=== PATIENT | male | born 1975 | race Caucasian/White ===

== ENCOUNTER 2017-07-30 12:48 | Emergency (ER) | payer OTHER ==
[2017-07-30 13:26] VITALS: BP 121/88; PULSE 91; RESP 18; TEMP 98.5
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
--- NOTE | 2017-07-30 13:52 | XR ---
EXAMINATION TYPE: XR hand complete RT , 3 VIEWS DATE OF EXAM ORDERED: 07/30/2017 HISTORY: Pain. COMPARISON: None. FINDINGS: There is a fracture of the tuft of the ring finger with associated soft tissue swelling. T his is minimally displaced. No additional fracture is seen. IMPRESSION: MINIMALLY DISPLACED FRACTURE OF THE ULNAR ASPECT OF THE TUFT OF THE RING FINGER. CODE B: INITIAL ENCOUNTER FOR OPEN FRACTURE TYPE I OR II.
--- NOTE | 2017-07-30 13:53 | XR ---
EXAMINATION TYPE: XR wrist complete RT , 4 VIEWS DATE OF EXAM ORDERED: 07/30/2017 HISTORY: Pain. COMPARISON: None. FINDINGS: No fracture, dislocation or other acute osseous lesion is seen. IMPRESSION: NO ACUTE OSSEOUS LESION.
== END 2017-07-30 14:29 | disposition home or self-care (01) ==
LOC: EC 12:48
DX: S62.634A Displaced fracture of distal phalanx of right ring finger, initial encounter for closed fracture (principal); S60.221A Contusion of right hand, initial encounter; F17.200 Nicotine dependence, unspecified, uncomplicated; Z88.5 Allergy status to narcotic agent; W51.XXXA Accidental striking against or bumped into by another person, initial encounter
CPT/HCPCS: 99283

== ENCOUNTER 2018-02-06 13:07 | Emergency (ER) | payer OTHER ==
[2018-02-06 13:27] VITALS: BP 120/82; PULSE 84; RESP 18; TEMP 98.5
[2018-02-06] MEDS ORDERED: HYDROcodone/APAP 5-325MG 1 EACH TAB PO STA (13:46)
--- NOTE | 2018-02-06 13:50 | ED ---
General Adult HPI - General Chief complaint: Dental/Oral Stated complaint: dental pain Time Seen by Provider: 02/06/18 13:31 Source: patient, RN notes reviewed Mode of arrival: ambulatory Limitations: no limitations - History of Present Illness Initial comments: Patient is a 42-year-old male presented to the emergency room today with a chief complaint of increased dental pain. He does admit that he was eating breakfast this morning and he believes part of a filling broke. Patient does admit to some pain in the gumline in this area. Patient states that he called his dentist but was unable to the appointment will be able to see them until Tuesday. States that he was advised coming here in the emergency room. Patient denies any other symptoms. Patient denies any recent fever, chills, shortness of breath, chest pain, back pain, abdominal pain, nausea or vomiting, numbness or tingling, headaches or visual changes, or any other complaints. - Related Data Home Medications Medication Instructions Recorded Confirmed Loratadine [Claritin] 10 mg PO DAILY 02/06/18 02/06/18 Methocarbamol [Robaxin-750] 750 mg PO Q4H PRN 02/06/18 02/06/18 Previous Rx's Medication Instructions Recorded Penicillin V Potassium [Pen Vee K] 500 mg PO QID #40 tablet 02/06/18 Allergies Allergy/AdvReac Type Severity Reaction Status Date / Time codeine Allergy Unknown Verified 02/06/18 13:37 Review of Systems ROS Statement: Those systems with pertinent positive or pertinent negative responses have been documented in the HPI. ROS Other: All systems not noted in ROS Statement are negative. Past Medical History Past Medical History: No Reported History History of Any Multi-Drug Resistant Organisms: None Reported Past Surgical History: Orthopedic Surgery Additional Past Surgical History / Comment(s): RIGHT ELBOW SURGERY Past Psychological History: Depression Smoking Status: Current every day smoker Past Alcohol Use History: None Reported Past Drug Use History: None Reported General Exam - General Exam Comments Initial Comments: General: The patient is awake and alert, in no distress, and does not appear acutely ill. Eye: Pupils are equal, round and reactive to light. Extra-ocular movements are intact. No nystagmus. There is normal conjunctiva bilaterally. No signs of icterus. Ears, nose, mouth and throat: There are moist mucous membranes and no oral lesions. Patient does have to dental crown that have broken over tooth #30 and 31. Neck: The neck is supple, there is no tenderness or JVD. Musculoskeletal: Normal ROM, no tenderness. Sensation intact. Strength 5/5. Pulses equal bilaterally 2+. Neurological: A&O x 3. CN II-XII intact, There are no obvious motor or sensory deficits. Coordination appears grossly intact. Speech is normal. Skin: Skin is warm and dry and no rashes or lesions are noted. Psychiatric: Cooperative, appropriate mood & affect, normal judgment. Limitations: no limitations Course Vital Signs 02/06/18 13:26 Temperature 98.5 F Pulse Rate 84 Respiratory 18 Rate Blood Pressure 120/82 O2 Sat by Pulse 99 Oximetry Medical Decision Making - Medical Decision Making Patient will be given dose pain medication here in the emergency room and discharged home on antibiotics to cover for infection is advised follow-up dentist over the next 2 days returning if symptoms increase or worsen. Disposition Clinical Impression: Pain, dental Disposition: HOME SELF-CARE Condition: Good Instructions: Toothache (ED) Additional Instructions: Please use medication as discussed. Please follow-up with dentist/family doctor in the next 2 days of symptoms have not improved. Please return to emergency room if the symptoms increase or worsen or for any other concerns. Prescriptions: Penicillin V Potassium [Pen Vee K] 500 mg PO QID #40 tablet Is patient prescribed a controlled substance at d/c from ED?: No Referrals: Arleth Contreras MD [Primary Care Provider] - 1-2 days Time of Disposition: 13:49
== END 2018-02-06 14:11 | disposition home or self-care (01) ==
LOC: EC 13:07
DX: K08.89 Other specified disorders of teeth and supporting structures (principal); F17.200 Nicotine dependence, unspecified, uncomplicated; Z88.5 Allergy status to narcotic agent; Z79.899 Other long term (current) drug therapy; Z98.811 Dental restoration status
CPT/HCPCS: 99282

== ENCOUNTER 2018-07-15 16:22 | Emergency (ER) | payer OTHER ==
[2018-07-15 16:27] VITALS: BP 150/93; PULSE 95; RESP 16; TEMP 98.5
[2018-07-15] MEDS ORDERED: IBUPROFEN 600 MG STARTER PACK 4 TAB BTL PO STA (16:39)
[2018-07-15] MEDS ORDERED: LIDOCAINE 1% INJ 10MG/ML (20 ML MDV) SQ ONE (16:39)
[2018-07-15] MEDS ORDERED: traMADol 50 MG STARTER PACK 3 TAB BTL PO STA (16:39)
[2018-07-15] MEDS ORDERED: PENICILLIN VK 500MG STARTER 4 TAB BTL PO STA (16:41)
--- NOTE | 2018-07-15 16:43 | ED ---
ENT HPI - General Chief complaint: Dental/Oral Stated complaint: Dental issues Time Seen by Provider: 07/15/18 16:26 Source: patient, RN notes reviewed, old records reviewed Mode of arrival: ambulatory Limitations: no limitations - History of Present Illness Initial comments: 43-year-old male presents emergency department today with complaints of dental pain. Patient relates is eating and broke his teeth today. Patient proceeded remain appointment see dentist on Tuesday. Patient states that he has had history of dental issues. Patient reports that has had no chest features for nausea or vomiting, denies any fevers or chills. - Related Data Home Medications Medication Instructions Recorded Confirmed Loratadine [Claritin] 10 mg PO DAILY 02/06/18 02/06/18 Methocarbamol [Robaxin-750] 750 mg PO Q4H PRN 02/06/18 02/06/18 Previous Rx's Medication Instructions Recorded Penicillin V Potassium [Pen Vee K] 500 mg PO QID #40 tablet 02/06/18 Penicillin V Potassium [Pen Vee K] 500 mg PO QID #40 tablet 07/15/18 Allergies Allergy/AdvReac Type Severity Reaction Status Date / Time codeine Allergy Unknown Verified 07/15/18 16:27 Review of Systems ROS Statement: Those systems with pertinent positive or pertinent negative responses have been documented in the HPI. ROS Other: All systems not noted in ROS Statement are negative. Past Medical History Past Medical History: No Reported History History of Any Multi-Drug Resistant Organisms: None Reported Past Surgical History: Orthopedic Surgery Additional Past Surgical History / Comment(s): RIGHT ELBOW SURGERY Past Psychological History: Depression Smoking Status: Current every day smoker Past Alcohol Use History: None Reported Past Drug Use History: None Reported General Exam - General Exam Comments Initial Comments: 43-year-old male. Alert and oriented. No distress. Limitations: no limitations General appearance: alert, in no apparent distress Head exam: Present: atraumatic, normocephalic, normal inspection Eye exam: Present: normal appearance, PERRL, EOMI. Absent: scleral icterus, conjunctival injection, periorbital swelling ENT exam: Present: normal exam, mucous membranes moist, other (Patient is a broken tooth #30 and #5. Evidence of dental caries and cavities are filled with metal fillings.) Neck exam: Present: normal inspection. Absent: tenderness, meningismus, lymphadenopathy Respiratory exam: Present: normal lung sounds bilaterally. Absent: respiratory distress, wheezes, rales, rhonchi, stridor Cardiovascular Exam: Present: regular rate, normal rhythm, normal heart sounds. Absent: systolic murmur, diastolic murmur, rubs, gallop, clicks GI/Abdominal exam: Present: soft, normal bowel sounds. Absent: distended, tenderness, guarding, rebound, rigid Extremities exam: Present: normal inspection, full ROM, normal capillary refill. Absent: tenderness, pedal edema, joint swelling, calf tenderness Back exam: Present: normal inspection Neurological exam: Present: alert, oriented X3, CN II-XII intact Psychiatric exam: Present: normal affect, normal mood Course Vital Signs 07/15/18 16:23 Temperature 98.5 F Pulse Rate 95 Respiratory 16 Rate Blood Pressure 150/93 O2 Sat by Pulse 96 Oximetry Procedures - Nerve Block Local Anesthetic Used: Lidocaine 1% Amount of anesthesia used: 5 Side: right Intraoral Nerve Block: inferior alveolar Procedure Successful: Yes Complications: none Patient Tolerated Procedure: well, no complications Medical Decision Making - Medical Decision Making 47-year-old male presents today with complaints of dental pain. Patient reports he broke his tooth #30 and #4. Patient was given an inferior alveolar block wi th success. Discussed discharge the Patient with a prescription for antibiotics. He'll see a dentist on Tuesday. All questions Tonny return parameters were discussed. Disposition Clinical Impression: Pain, dental, Broken tooth injury Disposition: HOME SELF-CARE Condition: Good Instructions (If sedation given, give patient instructions): Toothache (ED) Additional Instructions: [facility] [address] [id number] [place] [address] [phone] (existing clients only) For new clients: [phone] 1st consult: $50 (includes Xrays) Usually 30% less then private dentist for visits after. [employer] Have to pay $50 for Xrays anmd rest is covered. [phone] Prescriptions: Penicillin V Potassium [Pen Vee K] 500 mg PO QID #40 tablet Is patient prescribed a controlled substance at d/c from ED?: No Referrals: Arleth Contreras MD [Primary Care Provider] - 1-2 days Time of Disposition: 16:43
== END 2018-07-15 17:00 | disposition home or self-care (01) ==
LOC: EC 16:22
DX: S02.5XXA Fracture of tooth (traumatic), initial encounter for closed fracture (principal); F17.200 Nicotine dependence, unspecified, uncomplicated; Z79.899 Other long term (current) drug therapy; Z88.5 Allergy status to narcotic agent; X58.XXXA Exposure to other specified factors, initial encounter
CPT/HCPCS: 99283; 64400; J2001

== ENCOUNTER 2018-07-26 16:49 | Emergency (ER) | payer OTHER ==
[2018-07-26 16:54] LABS: Glucose,Whole Blood 81 mg/dL (75-99)
[2018-07-26] MEDS ORDERED: SODIUM CHLORIDE 0.9% 1,000 ML IV STA (16:55)
[2018-07-26 16:56] VITALS: RESP 18
[2018-07-26 17:02] LABS: Basophils % (A) 0 %; Eosinophils # (A) 0.1 k/uL (0-0.7); Eosinophils % (A) 1 %; HCT 42.9 % (39.0-53.0); HGB 13.8 gm/dL (13.0-17.5); Lymphocytes # (A) 1.9 k/uL (1.0-4.8); Lymphocytes % (A) 21 %; MCH 26.1 pg (25.0-35.0); MCHC 32.2 g/dL (31.0-37.0); MCV 81.3 fL (80.0-100.0); Mean Platelet Volume 7.7; Monocytes # (A) 0.5 k/uL (0-1.0); Monocytes % (A) 6 %; Neutrophils # (A) 6.5 k/uL (1.3-7.7); Neutrophils % (A) 71 %; Platelet Count 227 k/uL (150-450); RBC 5.28 m/uL (4.30-5.90); RDW 14.2 % (11.5-15.5); WBC 9.2 k/uL (3.8-10.6)
--- NOTE | 2018-07-26 17:02 | ED ---
General Adult HPI - General Chief complaint: Neuro Symptoms/Deficit Stated complaint: Poss CVA Time Seen by Provider: 07/26/18 16:50 Source: patient, EMS, RN notes reviewed Mode of arrival: EMS Limitations: no limitations - History of Present Illness Initial comments: Patient is a pleasant 43-year-old male presenting to the emergency department with concern for stroke. Patient was at work around a half an hour ago was onset of symptoms. Patient did feel like his vision was getting blurry and he may pass out. Patient does have a right-sided headache. Patient does have a history of previous headaches worse than this one. Patient states his vision is near normal at this point. EMS arrived and had question regarding some weakness on the patient's left side. They feel this has somewhat progressed since first evaluating patient. They state there was originally no facial droop however there seems to be at this point. Patient denies history of any similar symptoms previously except for headache. Patient does not feel confused. Patient denies any speech problems. - Related Data Home Medications Medication Instructions Recorded Confirmed Loratadine [Claritin] 10 mg PO DAILY 02/06/18 07/26/18 Ergocalciferol (Vitamin D2) 50,000 unit PO TU 07/26/18 07/26/18 [Vitamin D2] HYDROcodone/APAP 10-325MG [[place] 1 tab PO BID PRN 07/26/18 07/26/18 10-325] Naproxen 500 mg PO BID PRN 07/26/18 07/26/18 Allergies Allergy/AdvReac Type Severity Reaction Status Date / Time codeine Allergy Unknown Verified 07/26/18 16:56 Review of Systems ROS Statement: Those systems with pertinent positive or pertinent negative responses have been documented in the HPI. ROS Other: All systems not noted in ROS Statement are negative. Constitutional: Denies: fever Eyes: Reports: as per HPI. Denies: eye pain ENT: Denies: ear pain Respiratory: Denies: dyspnea Cardiovascular: Denies: chest pain Endocrine: Denies: fatigue Gastrointestinal: Denies: abdominal pain Genitourinary: Denies: dysuria Musculoskeletal: Denies: back pain Skin: Denies: rash Neurological: Reports: as per HPI, headache, weakness. Denies: confusion Past Medical History Past Medical History: No Reported History History of Any Multi-Drug Resistant Organisms: None Reported Past Surgical History: Orthopedic Surgery Additional Past Surgical History / Comment(s): RIGHT ELBOW SURGERY Past Psychological History: Depression Smoking Status: Current every day smoker Past Alcohol Use History: None Reported Past Drug Use History: None Reported General Exam Limitations: no limitations General appearance: alert, in no apparent distress Head exam: Present: atraumatic Eye exam: Present: normal appearance, PERRL, EOMI, nystagmus ENT exam: Present: normal oropharynx Neck exam: Present: normal inspection Respiratory exam: Present: normal lung sounds bilaterally Cardiovascular Exam: Present: regular rate, normal rhythm GI/Abdominal exam: Present: soft. Absent: tenderness Extremities exam: Present: normal inspection Neurological exam: Present: alert, oriented X3, CN II-XII intact (Except for left-sided facial droop) Expanded Neurological exam: Present: protecting the airway, other (Left facial droop. Minimal drift left arm and left leg. Patient does have nystagmus present horizontally.) Patient oriented to: Present: person, place, time Speech: Present: fluid speech Cranial nerves: EOM's Intact: Normal, Facial Sensation: Normal Sensory exam: Upper Extremity Light Touch: Normal, Lower Extremity Light Touch: Normal Motor strength exam: RUE: 5, LUE: 4, RLE: 5, LLE: 4 Eye Response: (4) open spontaneously Motor Response: (6) obeys commands Verbal Response: (5) oriented Psychiatric exam: Present: normal affect, normal mood Skin exam: Present: normal color Course Vital Signs 07/26/18 07/26/18 07/26/18 16:52 17:05 17:20 Temperature 98.3 F Pulse Rate 82 80 84 Respiratory 18 18 18 Rate Blood Pressure 120/85 115/65 114/64 O2 Sat by Pulse 100 98 98 Oximetry - Reevaluation(s) Reevaluation #1: 07/26/18 17:00 Code stroke has been called 07/26/18 17:11 Case was discussed with Dr. Rose who will review the films and call back. 07/26/18 17:32 Case again discussed with Dr. Rose who placed the patient is an NIH of 2 and does not recommend TPA. He does recommend aspirin and transfer to [facility]. Patient updated. Reevaluated. EKG Findings - EKG Comments: EKG Findings:: Normal sinus rhythm at 76. RI 178. QRS 82. QT 372. QTC 418. Right axis. Normal QRS. No acute ST change. Medical Decision Making - Lab Data Result diagrams: 07/26/18 16:54 07/26/18 16:54 Lab Results 07/26/18 07/26/18 07/26/18 Range/Units 16:53 16:54 16:54 WBC 9.2 (3.8-10.6) k/uL RBC 5.28 (4.30-5.90) m/uL Hgb 13.8 (13.0-17.5) gm/dL Hct 42.9 (39.0-53.0) % MCV 81.3 (80.0-100.0) fL MCH 26.1 (25.0-35.0) pg MCHC 32.2 (31.0-37.0) g/dL RDW 14.2 (11.5-15.5) % Plt Count 227 (150-450) k/uL Neutrophils % 71 % Lymphocytes % 21 % Monocytes % 6 % Eosinophils % 1 % Basophils % 0 % Neutrophils # 6.5 (1.3-7.7) k/uL Lymphocytes # 1.9 (1.0-4.8) k/uL Monocytes # 0.5 (0-1.0) k/uL Eosinophils # 0.1 (0-0.7) k/uL Basophils # 0.0 (0-0.2) k/uL PT (9.0-12.0) sec INR (<1.2) APTT (22.0-30.0) sec Sodium 140 (137-145) mmol/L Potassium 4.0 (3.5-5.1) mmol/L Chloride 110 H (98-107) mmol/L Carbon Dioxide 23 (22-30) mmol/L Anion Gap 7 mmol/L BUN 17 (9-20) mg/dL Creatinine 1.08 (0.66-1.25) mg/dL Est GFR (CKD-EPI)AfAm >90 (>60 ml/min/1.73 sqM) Est GFR (CKD-EPI)NonAf 84 (>60 ml/min/1.73 sqM) Glucose 85 (74-99) mg/dL POC Glucose (mg/dL) 81 (75-99) mg/dL POC Glu Home Visitor ID Tony, Liliane Calcium 9.5 (8.4-10.2) mg/dL Total Bilirubin 0.9 (0.2-1.3) mg/dL AST 18 (17-59) U/L ALT 23 (21-72) U/L Alkaline Phosphatase 60 (38-126) U/L Total Creatine Kinase (55-170) U/L CK-MB (CK-2) (0.0-2.4) ng/mL CK-MB (CK-2) Rel Index Troponin I (0.000-0.034) ng/mL Total Protein 6.7 (6.3-8.2) g/dL Albumin 4.2 (3.5-5.0) g/dL 07/26/18 07/26/18 Range/Units 16:54 16:54 WBC (3.8-10.6) k/uL RBC (4.30-5.90) m/uL Hgb (13.0-17.5) gm/dL Hct (39.0-53.0) % MCV (80.0-100.0) fL MCH (25.0-35.0) pg MCHC (31.0-37.0) g/dL RDW (11.5-15.5) % Plt Count (150-450) k/uL Neutrophils % % Lymphocytes % % Monocytes % % Eosinophils % % Basophils % % Neutrophils # (1.3-7.7) k/uL Lymphocytes # (1.0-4.8) k/uL Monocytes # (0-1.0) k/uL Eosinophils # (0-0.7) k/uL Basophils # (0-0.2) k/uL PT 10.8 (9.0-12.0) sec INR 1.0 (<1.2) APTT 27.3 (22.0-30.0) sec Sodium (137-145) mmol/L Potassium (3.5-5.1) mmol/L Chloride (98-107) mmol/L Carbon Dioxide (22-30) mmol/L Anion Gap mmol/L BUN (9-20) mg/dL Creatinine (0.66-1.25) mg/dL Est GFR (CKD-EPI)AfAm (>60 ml/min/1.73 sqM) Est GFR (CKD-EPI)NonAf (>60 ml/min/1.73 sqM) Glucose (74-99) mg/dL POC Glucose (mg/dL) (75-99) mg/dL POC Glu Home Visitor ID Calcium (8.4-10.2) mg/dL Total Bilirubin (0.2-1.3) mg/dL AST (17-59) U/L ALT (21-72) U/L Alkaline Phosphatase (38-126) U/L Total Creatine Kinase 190 H (55-170) U/L CK-MB (CK-2) 0.4 (0.0-2.4) ng/mL CK-MB (CK-2) Rel Index 0.2 Troponin I <0.012 (0.000-0.034) ng/mL Total Protein (6.3-8.2) g/dL Albumin (3.5-5.0) g/dL - Radiology Data Radiology results: report reviewed (Computed tomography scan of the brain reveals no acute abnormality.) Critical Care Time Critical Care Time: Yes Total Critical Care Time: 31 Disposition Clinical Impression: Cerebrovascular accident Disposition: OTHER INSTITUTION NOT DEFINED Referrals: Arleth Contreras MD [Primary Care Provider] - 1-2 days Time of Disposition: 17:33 - Out of Hospital Transfer - Req. Specs Out of Hospital Transfer - Requested Specifics: Other Emergency Center
[2018-07-26 17:10] LABS: Partial Thromboplastin Time 27.3 sec (22.0-30.0); Prothrombin Time 10.8 sec (9.0-12.0)
[2018-07-26 17:11] LABS: ALT 23 U/L (21-72); AST 18 U/L (17-59); Albumin 4.2 g/dL (3.5-5.0); Alkaline Phosphatase 60 U/L (38-126); Anion Gap 7 mmol/L; Blood Urea Nitrogen 17 mg/dL (9-20); Calcium 9.5 mg/dL (8.4-10.2); Carbon Dioxide 23 mmol/L (22-30); Chloride 110 mmol/L (98-107); Glucose 85 mg/dL (74-99); Sodium 140 mmol/L (137-145); Total Bilirubin 0.9 mg/dL (0.2-1.3); Total Protein 6.7 g/dL (6.3-8.2)
--- NOTE | 2018-07-26 17:18 | CT ---
EXAMINATION TYPE: CT brain wo con for TPA DATE OF EXAM: 07/26/2018 COMPARISON: None HISTORY: Left sided weakness. CT DLP: 1012 mGycm Automated exposure control for dose reduction was used. FINDINGS: Ventricles of normal size. There is no mass effect nor midline shift. There is no sign of intracrania l hemorrhage. I see no sign of cerebral edema. Calvarium is intact. IMPRESSION: Negative CT scan of the brain.
[2018-07-26 17:21] LABS: Creatine Kinase 190 U/L (55-170)
[2018-07-26 17:34] LABS: Creatine Kinase MB 0.4 ng/mL (0.0-2.4); Troponin I <0.012 ng/mL (0.000-0.034)
[2018-07-26] MEDS ORDERED: ASPIRIN 81 MG PO STA (17:34)
[2018-07-26 17:45] LABS: Appearance,Urine Clear (Clear); Bilirubin,Urine Negative (Negative); Blood,Urine Negative (Negative); Color,Urine Yellow; Glucose,Urine (UA) Negative (Negative); Ketones,Urine 1+ (Negative); Leukocyte Esterase,Urine Negative (Negative); Nitrite,Urine Negative (Negative); PH, Urine 6.5 (5.0-8.0); Protein,Urine Trace (Negative); Urobilinogen,Urine <2.0 mg/dL (<2.0)
[2018-07-26 17:55] LABS: Amphetamine Screen,Urine Not Detected (NotDetected); Barbiturate Screen,Urine Not Detected (NotDetected); Benzodiazepines Screen,Urine Not Detected (NotDetected); Cocaine Screen,Urine Not Detected (NotDetected); Methadone Screen, Urine Not Detected (NotDetected); Opiate Screen,Urine Detected (NotDetected); Oxycodone Screen, Urine Not Detected (NotDetected); Phencyclidine Screen,Urine Not Detected (NotDetected); Tricyclic Antidepressant,Urine Not Detected (NotDetected); Urn Cannabinoid Scrn Not Detected (NotDetected)
--- NOTE | 2018-07-26 17:55 | CT ---
EXAMINATION TYPE: CT angio head neck DATE OF EXAM: 07/26/2018 HISTORY: Left sided weakness. COMPARISON: None CT DLP: 382.4 mGycm. Automated Exposure Control for Dose Reduction was Utilized. TECHNIQUE: CTA scan of the neck is performed with IV Contrast, patient injected with 65 mL of Isovue 370, axial images are obtained, coronal and sagittal reformatted images are reviewed. Three-D recons tructed images are created on an independent workstation and reviewed. FINDINGS: There is normal branching pattern of the great vessels on the aortic arch. Left vertebral artery has origin on the arch. There is bilateral patency of the subclavian arteries. There is bilateral arteria l flow in the vertebral arteries. Right vertebral artery slightly larger than the left. There is arterial flow in the common internal and external carotid arteries bilaterally. The carotid artery bifurcations are widely patent. There is arterial flow in the anterior middle and posterior cerebral arteries. There is arterial flow in the vertebrobasilar artery system. There is mucosal thickening in the ethmoid air cells and nasop harynx. There is no evidence of intracranial aneurysm or neovascularity. There is no mass effect. There is no rmal contrast opacification of the venous sinuses. There is no evidence of intracranial arterial sten osis. IMPRESSION: Normal CT angiogram of the neck. Normal CT angiogram of the brain.
[2018-07-26 18:02] LABS: Specific Gravity,Urine >1.050 (1.001-1.035)
--- NOTE | 2018-07-26 18:02 | XR ---
EXAMINATION TYPE: XR chest 2V DATE OF EXAM: 07/26/2018 COMPARISON: NONE HISTORY: Altered mental status TECHNIQUE: Frontal and lateral views of the chest are obtained. FINDINGS: Heart and mediastinum are normal. Lungs are clear. Diaphragm is normal. Bony thorax appear s normal. There are chest leads. IMPRESSION: Normal chest
[2018-07-26 18:52] VITALS: BP 126/82; PULSE 81; TEMP 97.9
== END 2018-07-26 18:45 | disposition other institution (70) ==
LOC: EC 16:49
DX: I63.9 Cerebral infarction, unspecified (principal); R29.703 NIHSS score 3; F17.200 Nicotine dependence, unspecified, uncomplicated; Z79.899 Other long term (current) drug therapy; Z88.5 Allergy status to narcotic agent
CPT/HCPCS: 36415; 93005; 80053; 82550; 82553; 84484; 85025; 85610; 85730; 81003; 80306; 71046; 70496; 70450; 70498; 99291; 96360; Q9967

== ENCOUNTER 2018-08-08 16:28 | Emergency (ER) | payer OTHER ==
[2018-08-08 16:35] VITALS: TEMP 98.2
--- NOTE | 2018-08-08 16:52 | ED ---
Chest Pain HPI - General Chief Complaint: Chest Pain Stated Complaint: chest tightness Time Seen by Provider: 08/08/18 16:44 Source: patient, RN notes reviewed, old records reviewed Mode of arrival: wheelchair Limitations: no limitations - History of Present Illness Initial Comments: This is a 43-year-old male the ER for evaluation. Patient resents today for evaluation regards to chest pain. Chest tightness. Patient has recent medical history that is significant significant for CVA. CVA spec unaffected is petition and speech. Patient has a known hole in his heart. A she is following up with cardiology regarding. MD Complaint: chest pain -: days(s) Onset: during rest, during exertion Pain Location: substernal, left chest Pain Radiation: none Severity: mild Severity scale (1-10): 2 Quality: tightness, heaviness Consistency: intermittent Improves With: nothing Worsens With: nothing Treatments Prior to Arrival: none - Related Data Home Medications Medication Instructions Recorded Confirmed Loratadine [Claritin] 10 mg PO DAILY 02/06/18 08/08/18 Ergocalciferol (Vitamin D2) 50,000 unit PO TU 07/26/18 08/08/18 [Vitamin D2] Naproxen 500 mg PO BID PRN 07/26/18 08/08/18 Aspirin [Children's Aspirin] 81 mg PO DAILY 08/08/18 08/08/18 Atorvastatin [Lipitor] 20 mg PO HS 08/08/18 08/08/18 Previous Rx's Medication Instructions Recorded HYDROcodone/APAP 10-325MG [[place] 1 tab PO BID PRN #12 tab 08/08/18 10-325] HYDROcodone/APAP 5-325MG [[place] 1 tab PO Q6HR PRN #12 tab 08/08/18 5-325] Allergies Allergy/AdvReac Type Severity Reaction Status Date / Time codeine Allergy Unknown Verified 08/08/18 16:44 Review of Systems ROS Statement: Those systems with pertinent positive or pertinent negative responses have been documented in the HPI. ROS Other: All systems not noted in ROS Statement are negative. EKG Findings - EKG Comments: EKG Findings:: EKG shows sinus rhythm rate of 75, [place] 160 QRS 80, QTC 432 Past Medical History Past Medical History: CVA/TIA History of Any Multi-Drug Resistant Organisms: None Reported Past Surgical History: Orthopedic Surgery Additional Past Surgical History / Comment(s): RIGHT ELBOW SURGERY Past Psychological History: Depression Smoking Status: Current every day smoker Past Alcohol Use History: None Reported Past Drug Use History: None Reported General Exam Limitations: no limitations General appearance: alert, in no apparent distress Head exam: Present: atraumatic, normocephalic, normal inspection Eye exam: Present: normal appearance, PERRL, EOMI. Absent: scleral icterus, conjunctival injection, periorbital swelling ENT exam: Present: normal exam, mucous membranes moist Neck exam: Present: normal inspection. Absent: tenderness, meningismus, lymphadenopathy Respiratory exam: Present: normal lung sounds bilaterally. Absent: respiratory distress, wheezes, rales, rhonchi, stridor Cardiovascular Exam: Present: regular rate, normal rhythm, normal heart sounds. Absent: systolic murmur, diastolic murmur, rubs, gallop, clicks GI/Abdominal exam: Present: soft, normal bowel sounds. Absent: distended, tenderness, guarding, rebound, rigid Extremities exam: Present: normal inspection, full ROM, normal capillary refill. Absent: tenderness, pedal edema, joint swelling, calf tenderness Back exam: Present: normal inspection Neurological exam: Present: alert, oriented X3, CN II-XII intact Psychiatric exam: Present: normal affect, normal mood Skin exam: Present: warm, dry, intact, normal color. Absent: rash Course Vital Signs 08/08/18 08/08/18 16:33 18:38 Temperature 98.2 F Pulse Rate 97 79 Respiratory 18 16 Rate Blood Pressure 126/77 140/97 O2 Sat by Pulse 99 99 Oximetry - Reevaluation(s) Reevaluation #1: Medical record is reviewed Patient states he is out of his [place] is requesting pain medication Patient was just admitted her facility for CVA transferred to [facility] where he was evaluated found to have on his heart. Patient has had chest pain ever since that discharge. That is been 6 days. 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 Patient is not want to stay for cardiac evaluation and can be discharged home Disposition Clinical Impression: Chest pain Disposition: HOME SELF-CARE Condition: Good Instructions (If sedation given, give patient instructions): Chest Pain (ED) Prescriptions: HYDROcodone/APAP 10-325MG [[place] 10-325] 1 tab PO BID PRN #12 tab PRN Reason: Pain HYDROcodone/APAP 5-325MG [[place] 5-325] 1 tab PO Q6HR PRN #12 tab PRN Reason: Pain Is patient prescribed a controlled substance at d/c from ED?: Yes When asked, does pt state using other controlled substances?: Yes If prescribed controlled substance>3 days was MAPS reviewed?: Prescribed <3 Days If opioid is for acute pain is fill amount 7 days or less?: Yes If Rx opioid, was Start Talking consent form obtained?: Yes Referrals: Arleth Contreras MD [Primary Care Provider] - 1-2 days
[2018-08-08 17:15] LABS: Basophils # (A) 0.1 k/uL (0-0.2); Basophils % (A) 1 %; Eosinophils # (A) 0.3 k/uL (0-0.7); Eosinophils % (A) 3 %; HCT 42.6 % (39.0-53.0); Lymphocytes % (A) 22 %; MCH 26.5 pg (25.0-35.0); MCHC 32.9 g/dL (31.0-37.0); MCV 80.5 fL (80.0-100.0); Mean Platelet Volume 8.1; Monocytes # (A) 0.4 k/uL (0-1.0); Monocytes % (A) 5 %; Neutrophils # (A) 6.3 k/uL (1.3-7.7); Neutrophils % (A) 68 %; Platelet Count 210 k/uL (150-450); RBC 5.29 m/uL (4.30-5.90); RDW 14.8 % (11.5-15.5); WBC 9.2 k/uL (3.8-10.6)
[2018-08-08 17:21] LABS: ALT 39 U/L (21-72); AST 23 U/L (17-59); Albumin 4.3 g/dL (3.5-5.0); Alkaline Phosphatase 68 U/L (38-126); Anion Gap 9 mmol/L; Blood Urea Nitrogen 8 mg/dL (9-20); Calcium 9.7 mg/dL (8.4-10.2); Carbon Dioxide 24 mmol/L (22-30); Chloride 107 mmol/L (98-107); Glucose 86 mg/dL (74-99); Lipase 70 U/L (23-300); Magnesium 2.1 mg/dL (1.6-2.3); Potassium 3.9 mmol/L (3.5-5.1); Sodium 140 mmol/L (137-145); Total Bilirubin 0.4 mg/dL (0.2-1.3); Total Protein 6.8 g/dL (6.3-8.2)
[2018-08-08 17:23] LABS: INR 0.9 (<1.2); Partial Thromboplastin Time 25.9 sec (22.0-30.0); Prothrombin Time 10.2 sec (9.0-12.0)
[2018-08-08] MEDS ORDERED: HYDROcodone/APAP 5-325MG 1 EACH TAB PO STA (17:37)
--- NOTE | 2018-08-08 18:03 | XR ---
EXAMINATION: XR chest 2V DATE AND TIME: 08/08/2018 5:23 PM CLINICAL INDICATION: PHH; Chest Pain TECHNIQUE: Departmental protocol COMPARISON: 07/26/2018 FINDINGS: The lungs are clear. The pleural spaces are negative. The cardiac silhouette is not enlarged. The remainder of the mediastinal silhouette is unremarkable. The skeletal structures and soft tissues are negative for acute findings. IMPRESSION: NO ACUTE PROCESS.
[2018-08-08 18:39] VITALS: BP 140/97; PULSE 79; RESP 16
== END 2018-08-08 18:47 | disposition home or self-care (01) ==
LOC: EC 16:28
DX: R07.89 Other chest pain (principal); Q24.8 Other specified congenital malformations of heart; F17.200 Nicotine dependence, unspecified, uncomplicated; Z88.5 Allergy status to narcotic agent; Z79.82 Long term (current) use of aspirin; Z79.899 Other long term (current) drug therapy; Z86.73 Personal history of transient ischemic attack (TIA), and cerebral infarction without residual deficits
CPT/HCPCS: 36415; 71046; 80053; 83690; 83735; 83880; 84484; 85025; 85610; 85730; 93005; 99285

== ENCOUNTER 2018-08-27 11:17 | Emergency (ER) | payer OTHER ==
[2018-08-27 11:29] VITALS: RESP 18
--- NOTE | 2018-08-27 12:26 | ED ---
Recheck HPI - General Chief Complaint: Recheck/Abnormal Lab/Rx Stated Complaint: Med Refill Time Seen by Provider: 08/27/18 11:30 Source: patient, RN notes reviewed, old records reviewed Limitations: no limitations - History of Present Illness Initial Comments: This is a 43-year-old male the ER for evaluation. Patient resents today for medication refill. Patient states he is out of his pain medication having withdrawal from pain medication. Patient denies active with trouble since last medication taken was 2 days ago. He has gone through withdrawal before concern for withdrawal currently. Patient states he has applied with his family doctor in one week Complaint: medication refill request -: days(s) Returns Today for: request for prescription Symptoms Since Prior Visit: no new symptoms Context: ran out of medication Associated Symptoms: none - Related Data Home Medications Medication Instructions Recorded Confirmed Loratadine [Claritin] 10 mg PO DAILY 02/06/18 08/08/18 Ergocalciferol (Vitamin D2) 50,000 unit PO TU 07/26/18 08/08/18 [Vitamin D2] Naproxen 500 mg PO BID PRN 07/26/18 08/08/18 Aspirin [Children's Aspirin] 81 mg PO DAILY 08/08/18 08/08/18 Atorvastatin [Lipitor] 20 mg PO HS 08/08/18 08/08/18 Previous Rx's Medication Instructions Recorded HYDROcodone/APAP 10-325MG [[place] 1 tab PO BID PRN #12 tab 08/08/18 10-325] HYDROcodone/APAP 5-325MG [[place] 1 tab PO Q6HR PRN #12 tab 08/08/18 5-325] HYDROcodone/APAP 5-325MG [[place] 1 tab PO Q6HR PRN #12 tab 08/27/18 5-325] Allergies Allergy/AdvReac Type Severity Reaction Status Date / Time codeine Allergy Unknown Verified 08/27/18 11:29 Review of Systems ROS Statement: Those systems with pertinent positive or pertinent negative responses have been documented in the HPI. ROS Other: All systems not noted in ROS Statement are negative. Past Medical History Past Medical History: CVA/TIA History of Any Multi-Drug Resistant Organisms: None Reported Past Surgical History: Orthopedic Surgery Additional Past Surgical History / Comment(s): RIGHT ELBOW SURGERY Past Psychological History: Depression Smoking Status: Current every day smoker Past Alcohol Use History: None Reported Past Drug Use History: None Reported General Exam Limitations: no limitations General appearance: alert, in no apparent distress Head exam: Present: atraumatic, normocephalic, normal inspection Eye exam: Present: normal appearance, PERRL, EOMI. Absent: scleral icterus, conjunctival injection, periorbital swelling ENT exam: Present: normal exam, mucous membranes moist Neck exam: Present: normal inspection. Absent: tenderness, meningismus, lymphadenopathy Respiratory exam: Present: normal lung sounds bilaterally. Absent: respiratory distress, wheezes, rales, rhonchi, stridor Cardiovascular Exam: Present: regular rate, normal rhythm, normal heart sounds. Absent: systolic murmur, diastolic murmur, rubs, gallop, clicks GI/Abdominal exam: Present: soft, normal bowel sounds. Absent: distended, tenderness, guarding, rebound, rigid Extremities exam: Present: normal inspection, full ROM, normal capillary refill. Absent: tenderness, pedal edema, joint swelling, calf tenderness Back exam: Present: normal inspection Neurological exam: Present: alert, oriented X3, CN II-XII intact Psychiatric exam: Present: normal affect, normal mood Skin exam: Present: warm, dry, intact, normal color. Absent: rash Course Vital Signs 08/27/18 08/27/18 11:26 12:53 Temperature 98.2 F 98.4 F Pulse Rate 90 87 Respiratory 18 18 Rate Blood Pressure 126/84 140/78 O2 Sat by Pulse 99 98 Oximetry Medical Decision Making - Medical Decision Making 43 male the ER for evaluation, medication refill. Patient is here for a second medication refill this month. Patient was seen in [facility] recently for stroke and he states that hospitalization coincided with his ability to follow-up with his primary care regarding pain control. Patient can be discharged Disposition Clinical Impression: Encounter for medication refill Disposition: HOME SELF-CARE Condition: Good Instructions (If sedation given, give patient instructions): Medicine Refill (ED) Prescriptions: HYDROcodone/APAP 5-325MG [[place] 5-325] 1 tab PO Q6HR PRN #12 tab PRN Reason: Pain Is patient prescribed a controlled substance at d/c from ED?: Yes When asked, does pt state using other controlled substances?: Yes If prescribed controlled substance>3 days was MAPS reviewed?: Prescribed <3 Days If opioid is for acute pain is fill amount 7 days or less?: Yes If Rx opioid, was Start Talking consent form obtained?: Yes Referrals: Arleth Contreras MD [Primary Care Provider] - 1-2 days
[2018-08-27 12:54] VITALS: BP 140/78; PULSE 87; TEMP 98.4
--- NOTE | 2018-08-29 02:37 | CDI ---
Documentation Clarification OP Dear Chester CEJA, DO Please do addendum to ED report for missing HPI and Physical examination. Thank you, Serena Bal Dress Operator If you have any questions, please contact Gl[employer] Kiln Operator at [phone] [facility]
== END 2018-08-27 12:53 | disposition home or self-care (01) ==
LOC: EC 11:17
DX: Z76.0 Encounter for issue of repeat prescription (principal); F17.200 Nicotine dependence, unspecified, uncomplicated; Z86.73 Personal history of transient ischemic attack (TIA), and cerebral infarction without residual deficits; Z79.82 Long term (current) use of aspirin; Z79.899 Other long term (current) drug therapy; Z88.5 Allergy status to narcotic agent
CPT/HCPCS: 99282

== ENCOUNTER 2019-04-29 00:43 | Emergency (ER) | payer OTHER ==
[2019-04-29 00:47] VITALS: BP 130/87; RESP 18; TEMP 98
[2019-04-29] MEDS ORDERED: SODIUM CHLORIDE 0.9% 1,000 ML IV STA (00:52)
[2019-04-29] MEDS ORDERED: ASPIRIN 81 MG PO STA (00:52)
[2019-04-29] MEDS ORDERED: NITROGLYCERIN SL TABS 0.4 MG TAB SUBLINGUAL STA (00:52)
--- NOTE | 2019-04-29 00:53 | ED ---
Chest Pain HPI - General Chief Complaint: Chest Pain Stated Complaint: Chest pain Time Seen by Provider: 04/29/19 00:52 Source: patient Mode of arrival: wheelchair Limitations: no limitations - History of Present Illness Initial Comments: Pool is a 43-year-old male who presents the ER today for evaluation of right- sided chest pain radiating to his right shoulder. Patient reports he has a history of a stroke in the past secondary to a hole in his heart. Patient states that he takes daily aspirin. Patient states that he began experiencing right-sided chest pain that radiated into his right arm approximately 5 PM. Pain seems to be worse with any movement. Patient states that pain does not improve with rest. Patient his no history of coronary artery disease no family history of or early cardiac disease. - Related Data Home Medications Medication Instructions Recorded Confirmed Loratadine [Claritin] 10 mg PO DAILY 02/06/18 08/08/18 Ergocalciferol (Vitamin D2) 50,000 unit PO TU 07/26/18 08/08/18 [Vitamin D2] Naproxen 500 mg PO BID PRN 07/26/18 08/08/18 Aspirin [Children's Aspirin] 81 mg PO DAILY 08/08/18 08/08/18 Atorvastatin [Lipitor] 20 mg PO HS 08/08/18 08/08/18 Previous Rx's Medication Instructions Recorded HYDROcodone/APAP 10-325MG [[place] 1 tab PO BID PRN #12 tab 08/08/18 10-325] HYDROcodone/APAP 5-325MG [[place] 1 tab PO Q6HR PRN #12 tab 08/08/18 5-325] HYDROcodone/APAP 5-325MG [[place] 1 tab PO Q6HR PRN #12 tab 08/27/18 5-325] Allergies Allergy/AdvReac Type Severity Reaction Status Date / Time codeine Allergy Unknown Verified 08/27/18 11:29 Review of Systems ROS Statement: Those systems with pertinent positive or pertinent negative responses have been documented in the HPI. ROS Other: All systems not noted in ROS Statement are negative. EKG Findings - EKG Comments: EKG Findings:: EKG was obtained due to complaint of chest pain, EKG was obtained at 12:53 AM, rate is 76 rhythm is sinus there is rightward axis, normal intervals, [place] 168, QS 86, QTC 407 there are no acute ST elevations or depressions there is no evidence of acute ischemia or infarction. Past Medical History Past Medical History: CVA/TIA History of Any Multi-Drug Resistant Organisms: None Reported Past Surgical History: Orthopedic Surgery Additional Past Surgical History / Comment(s): RIGHT ELBOW SURGERY Past Psychological History: Depression Smoking Status: Current every day smoker Past Alcohol Use History: None Reported Past Drug Use History: None Reported General Exam - General Exam Comments Initial Comments: Physical Exam GENERAL: Patient is well-developed and well-nourished. Patient is nontoxic and well- hydrated and is in no distress. HENT: Normocephalic, Atraumatic. EYES: PERRL, EOMI PULMONARY: Unlabored respirations. No audible rales rhonchi or wheezing was noted. CARDIOVASCULAR: There is a regular rate and rhythm without any murmurs gallops or rubs. ABDOMEN: Soft and nontender with normal bowel sounds. SKIN: Skin is clear with no lesions or rashes and otherwise unremarkable. Multiple tattoos : Deferred NEUROLOGIC: Patient is alert and oriented x3. Moving all extremities spontaneously No Focal neurologic deficits MUSCULOSKELETAL: Normal extremities with adequate strength and full range of motion. No lower extremity swelling or edema. No calf tenderness. PSYCHIATRIC: Normal psychiatric evaluation. Limitations: no limitations Course Vital Signs 04/29/19 00:44 Temperature 98.0 F Pulse Rate 79 Respiratory 18 Rate Blood Pressure 130/87 O2 Sat by Pulse 100 Oximetry Chest Pain [facility] The patient was seen and evaluated, history is obtained from the patient His is a 43-year-old male with no cardiac history presenting with right-sided chest pain which is worse with movement, nonexertional not associated with palpitations diaphoresis lightheadedness or shortness of breath Chest pain has been present for greater than 7 hours prior to arrival Labs were obtained, his altered with no significant abnormalities, troponin is negative her in the patient reports pain has been constant for 7 hours prior to arrival I do feel that a single troponin is adequate to rule out cardiac ischemia. This was discussed with patient who is agreeable patient does have establish follow-up with cardiology secondary to structural heart disease as previously identified when he had a stroke. At this time patient's comfortable with plan for discharge home. Disposition Clinical Impression: Atypical chest pain Disposition: HOME SELF-CARE Condition: Stable Instructions (If sedation given, give patient instructions): Chest Pain (ED) Is patient prescribed a controlled substance at d/c from ED?: No Referrals: Arleth Contreras MD [Primary Care Provider] - 1-2 days
[2019-04-29 01:42] LABS: ALT 20 U/L (4-49); AST 26 U/L (17-59); African American GFR (CKD) >90 (>60 ml/min/1.73 sqM); Alkaline Phosphatase 74 U/L (38-126); Anion Gap 6 mmol/L; Blood Urea Nitrogen 16 mg/dL (9-20); Calcium 9.3 mg/dL (8.4-10.2); Carbon Dioxide 24 mmol/L (22-30); Chloride 110 mmol/L (98-107); Glucose 135 mg/dL (74-99); Magnesium 2.2 mg/dL (1.6-2.3); Non-African American GFR(CKD) 80 (>60 ml/min/1.73 sqM); Potassium 3.8 mmol/L (3.5-5.1); Sodium 140 mmol/L (137-145); Total Bilirubin 0.4 mg/dL (0.2-1.3); Total Protein 6.4 g/dL (6.3-8.2)
--- NOTE | 2019-04-29 01:47 | XR ---
EXAMINATION TYPE: XR chest 2V DATE OF EXAM: 04/29/2019 COMPARISON: 08/08/2018 HISTORY: Chest tightness TECHNIQUE: 2 views FINDINGS: Heart and mediastinum are normal. Lungs are clear. Diaphragm is normal. Bony thorax appears normal. IMPRESSION: Normal chest. No change.
[2019-04-29 01:48] LABS: Basophils % (A) 0 %; Eosinophils # (A) 0.3 k/uL (0-0.7); Eosinophils % (A) 4 %; HCT 40.2 % (39.0-53.0); HGB 13.2 gm/dL (13.0-17.5); Lymphocytes # (A) 2.2 k/uL (1.0-4.8); Lymphocytes % (A) 27 %; MCH 26.9 pg (25.0-35.0); MCHC 32.8 g/dL (31.0-37.0); MCV 82.1 fL (80.0-100.0); Mean Platelet Volume 8.4; Monocytes # (A) 0.5 k/uL (0-1.0); Monocytes % (A) 7 %; Neutrophils % (A) 61 %; Platelet Count 195 k/uL (150-450); RBC 4.89 m/uL (4.30-5.90); RDW 14.4 % (11.5-15.5); WBC 8.2 k/uL (3.8-10.6)
[2019-04-29 01:51] LABS: Partial Thromboplastin Time 27.9 sec (22.0-30.0); Prothrombin Time 10.3 sec (9.0-12.0)
[2019-04-29 03:12] VITALS: PULSE 78
== END 2019-04-29 03:13 | disposition home or self-care (01) ==
LOC: EC 00:43
DX: R07.89 Other chest pain (principal); F17.200 Nicotine dependence, unspecified, uncomplicated; Z79.82 Long term (current) use of aspirin; Z79.899 Other long term (current) drug therapy; Z88.5 Allergy status to narcotic agent; Z86.73 Personal history of transient ischemic attack (TIA), and cerebral infarction without residual deficits
CPT/HCPCS: 36415; 71046; 80053; 83735; 83880; 84484; 85025; 85610; 85730; 93005; 96360; 99285

== ENCOUNTER → 2019-06-27 | Outpatient (CLI) | payer OTHER ==
--- NOTE | 2019-06-27 16:12 | XR ---
Lumbosacral spine HISTORY: Low back pain 5 views of the lumbosacral spine Lumbar vertebral bodies show preserved height and alignment. There is no evident spondylolysis. There is multilevel spondylosis. Loss of disc height at intervertebral levels L3-4, L4-5 and L5-S1 noted. Sclerosis present in the posterior elements. IMPRESSION: Degenerative disc disease. Facet arthropathy.
== END | disposition home or self-care (01) ==
LOC: RADXRMAIN 15:25
PROVIDERS: ATTEND Physical Medicine & Rehabilitation
DX: M51.17 Intervertebral disc disorders with radiculopathy, lumbosacral region (principal); M51.16 Intervertebral disc disorders with radiculopathy, lumbar region; M47.26 Other spondylosis with radiculopathy, lumbar region; M47.27 Other spondylosis with radiculopathy, lumbosacral region
CPT/HCPCS: 72110

== ENCOUNTER 2020-03-08 23:48 | Emergency (ER) | payer OTHER ==
[2020-03-09 00:01] VITALS: BP 132/86; PULSE 79; RESP 20; TEMP 98.3
--- NOTE | 2020-03-09 00:21 | ED ---
Recheck HPI - General Chief Complaint: Recheck/Abnormal Lab/Rx Stated Complaint: Needs med clearence for work Time Seen by Provider: 03/09/20 00:07 Source: patient, family Mode of arrival: ambulatory Limitations: no limitations - History of Present Illness Initial Comments: this patient is 44-year-old man who presents with complaint that he needs to hav e a clearance to return to work. Complaint: other -: unknown Returns Today for: other Symptoms Since Prior Visit: no new symptoms Associated Symptoms: none - Related Data Home Medications Medication Instructions Recorded Confirmed Loratadine [Claritin] 10 mg PO DAILY 02/06/18 08/08/18 Ergocalciferol (Vitamin D2) 50,000 unit PO TU 07/26/18 08/08/18 [Vitamin D2] Naproxen 500 mg PO BID PRN 07/26/18 08/08/18 Aspirin [Children's Aspirin] 81 mg PO DAILY 08/08/18 08/08/18 Atorvastatin [Lipitor] 20 mg PO HS 08/08/18 08/08/18 Previous Rx's Medication Instructions Recorded HYDROcodone/APAP 10-325MG [[place] 1 tab PO BID PRN #12 tab 08/08/18 10-325] HYDROcodone/APAP 5-325MG [[place] 1 tab PO Q6HR PRN #12 tab 08/08/18 5-325] HYDROcodone/APAP 5-325MG [[place] 1 tab PO Q6HR PRN #12 tab 08/27/18 5-325] Allergies Allergy/AdvReac Type Severity Reaction Status Date / Time codeine Allergy Unknown Verified 03/09/20 00:01 Review of Systems ROS Statement: Those systems with pertinent positive or pertinent negative responses have been documented in the HPI. ROS Other: All systems not noted in ROS Statement are negative. Constitutional: Denies: fever, chills ENT: Denies: throat pain, congestion Respiratory: Denies: cough, dyspnea Cardiovascular: Denies: chest pain, palpitations Gastrointestinal: Denies: abdominal pain, vomiting, diarrhea Skin: Denies: rash Neurological: Denies: headache, weakness Past Medical History Past Medical History: CVA/TIA History of Any Multi-Drug Resistant Organisms: None Reported Past Surgical History: Orthopedic Surgery Additional Past Surgical History / Comment(s): RIGHT ELBOW SURGERY Past Psychological History: Depression Smoking Status: Current every day smoker Past Alcohol Use History: None Reported Past Drug Use History: None Reported General Exam Limitations: no limitations General appearance: alert, in no apparent distress Head exam: Present: atraumatic, normocephalic Eye exam: Present: normal appearance. Absent: scleral icterus, conjunctival injection ENT exam: Present: normal oropharynx Neck exam: Present: normal inspection, full ROM Respiratory exam: Present: normal lung sounds bilaterally. Absent: respiratory distress, wheezes, rales, rhonchi, stridor Cardiovascular Exam: Present: regular rate, normal rhythm, normal heart sounds. Absent: systolic murmur, diastolic murmur, rubs, gallop GI/Abdominal exam: Present: soft. Absent: distended, tenderness, guarding, rebound, rigid, mass Extremities exam: Present: normal inspection Neurological exam: Present: alert Skin exam: Present: warm, dry, intact, normal color. Absent: rash Course Vital Signs 03/08/20 23:57 Temperature 98.3 F Pulse Rate 79 Respiratory 20 Rate Blood Pressure 132/86 O2 Sat by Pulse 100 Oximetry Medical Decision Making - Lab Data Lab Results 03/09/20 Range/Units 00:15 Coronavirus (PCR) Not Detected (Not Detectd) Disposition Clinical Impression: Feared condition not demonstrated Disposition: HOME SELF-CARE Condition: Good Is patient prescribed a controlled substance at d/c from ED?: No Referrals: Arleth Contreras MD [Primary Care Provider] - 1-2 days
== END 2020-03-09 00:56 | disposition home or self-care (01) ==
LOC: EC 23:48
DX: Z71.1 Person with feared health complaint in whom no diagnosis is made (principal); Z20.828 Contact with and (suspected) exposure to other viral communicable diseases; F17.200 Nicotine dependence, unspecified, uncomplicated; Z79.82 Long term (current) use of aspirin; Z79.899 Other long term (current) drug therapy; Z86.73 Personal history of transient ischemic attack (TIA), and cerebral infarction without residual deficits; Z88.5 Allergy status to narcotic agent
CPT/HCPCS: 87635; 99282

== ENCOUNTER 2020-03-17 18:16 | Emergency (ER) | payer OTHER ==
[2020-03-17 18:31] VITALS: BP 134/93; PULSE 101; RESP 18; TEMP 97.8
[2020-03-17] MEDS ORDERED: HYDROcodone/APAP 10-325MG 1 EACH TAB PO ONE (19:10)
--- NOTE | 2020-03-17 19:11 | ED ---
Back Pain HPI - General Chief Complaint: Back Pain/Injury Stated Complaint: Severe Back Pain/all over pain Time Seen by Provider: 03/17/20 19:02 Source: patient Limitations: no limitations - History of Present Illness Initial Comments: 45-year-old male with history of chronic back pain presenting to the emergency department with a chief complaint of back pain. Patient reports she has been doing with chronic back pain for many years and he is currently switching his pain management physician. Patient reports he went to his primary care physician who would not given him any narcotic medication but advised him to come to the emergency department to see if they can help with the pain. Patient reports pain is in the lumbosacral region is radiating distally along the bilat eral lower extremities. He denies any saddle anesthesia, urinary retention with overflow incontinence or bowel incontinence. He denies back pain chest pain shortness of breath. - Related Data Home Medications Medication Instructions Recorded Confirmed Loratadine [Claritin] 10 mg PO DAILY 02/06/18 08/08/18 Ergocalciferol (Vitamin D2) 50,000 unit PO TU 07/26/18 08/08/18 [Vitamin D2] Naproxen 500 mg PO BID PRN 07/26/18 08/08/18 Aspirin [Children's Aspirin] 81 mg PO DAILY 08/08/18 08/08/18 Atorvastatin [Lipitor] 20 mg PO HS 08/08/18 08/08/18 Previous Rx's Medication Instructions Recorded HYDROcodone/APAP 10-325MG [Nunica 1 tab PO BID PRN #12 tab 08/08/18 10-325] HYDROcodone/APAP 5-325MG [Nunica 1 tab PO Q6HR PRN #12 tab 08/08/18 5-325] HYDROcodone/APAP 5-325MG [Nunica 1 tab PO Q6HR PRN #12 tab 08/27/18 5-325] Allergies Allergy/AdvReac Type Severity Reaction Status Date / Time codeine Allergy Unknown Verified 03/17/20 18:31 Review of Systems ROS Statement: Those systems with pertinent positive or pertinent negative responses have been documented in the HPI. ROS Other: All systems not noted in ROS Statement are negative. Past Medical History Past Medical History: CVA/TIA Additional Past Medical History / Comment(s): chronic back pain History of Any Multi-Drug Resistant Organisms: None Reported Past Surgical History: Orthopedic Surgery Additional Past Surgical History / Comment(s): RIGHT ELBOW SURGERY Past Psychological History: Depression Smoking Status: Current every day smoker Past Alcohol Use History: None Reported Past Drug Use History: None Reported General Exam Limitations: no limitations General appearance: alert, in no apparent distress Head exam: Present: atraumatic, normocephalic, normal inspection Eye exam: Present: normal appearance, PERRL, EOMI Pupils: Present: normal accommodation ENT exam: Present: normal exam, normal oropharynx, mucous membranes moist, TM's normal bilaterally, normal external ear exam Neck exam: Present: normal inspection, full ROM. Absent: tenderness, meningismus Respiratory exam: Present: normal lung sounds bilaterally. Absent: respiratory distress, wheezes, rales Cardiovascular Exam: Present: regular rate, normal rhythm, normal heart sounds GI/Abdominal exam: Present: soft, normal bowel sounds. Absent: distended, tenderness, guarding, rebound Extremities exam: Present: normal inspection, full ROM, normal capillary refill. Absent: tenderness, pedal edema, joint swelling, calf tenderness Back exam: Present: normal inspection, full ROM, tenderness, paraspinal tenderness, vertebral tenderness. Absent: CVA tenderness (R), CVA tenderness (L), muscle spasm Neurological exam: Present: alert, oriented X3, normal gait Psychiatric exam: Present: normal affect, normal mood. Absent: depressed, agitated Skin exam: Present: warm, dry, intact, normal color Course Vital Signs 03/17/20 18:28 Temperature 97.8 F Pulse Rate 101 H Respiratory 18 Rate Blood Pressure 134/93 O2 Sat by Pulse 100 Oximetry Medical Decision Making - Medical Decision Making 44-year-old male presenting to the emergency department with acute on chronic back pain. No cauda equina. I offered patient a Tylenol 3 starter pack, he declined. I did give the patient 1 tablet of Nunica 10/325. Advised him to follow up with his primary care physician a new pain management physician. Strict return parameters were thoroughly discussed the patient is a worsening ago. Case discussed with physician. Disposition Clinical Impression: Mechanical back pain Disposition: HOME SELF-CARE Condition: Stable Instructions (If sedation given, give patient instructions): Acute Low Back Pain (ED) Additional Instructions: Follow-up with an demolition specialist. Return to emergency department if symptoms worsen. Is patient prescribed a controlled substance at d/c from ED?: No Referrals: Sunilkumar,Mini, MD [Primary Care Provider] - 1-2 days Nika Flores DO [Doctor of Osteopathic Medicine] - 1-2 days Time of Disposition: 19:11
== END 2020-03-17 19:24 | disposition home or self-care (01) ==
LOC: EC 18:16
DX: M54.5 Low back pain (principal); G89.29 Other chronic pain; F17.200 Nicotine dependence, unspecified, uncomplicated; Z88.5 Allergy status to narcotic agent; Z86.73 Personal history of transient ischemic attack (TIA), and cerebral infarction without residual deficits
CPT/HCPCS: 99283

== ENCOUNTER → 2020-04-01 | Outpatient (CLI) | payer OTHER ==
--- NOTE | 2020-04-02 07:08 | US ---
EXAMINATION TYPE: US groin RT DATE OF EXAM: 04/01/2020 COMPARISON: CT 03/19/2016 CLINICAL HISTORY: R59.0 Localized enlarged lymph nodes. Pt states bilateral groin palpables x 2 years Bilateral groin scanned in area of pt's palpables, all appearing to be normal lymph nodes, largest in right groin= 5mm in size, largest in left groin= 5mm in size IMPRESSION: Nonenlarged lymph nodes, nodes show benign appearance similar to prior CT
== END | disposition home or self-care (01) ==
LOC: RADUSWWP 16:02
PROVIDERS: ATTEND Family Medicine
DX: R59.0 Localized enlarged lymph nodes (principal)

== ENCOUNTER 2020-07-29 16:21 | Emergency (ER) | payer OTHER ==
--- NOTE | 2020-07-29 18:51 | XR ---
EXAMINATION TYPE: XR hand complete LT DATE OF EXAM: 07/29/2020 COMPARISON: NONE HISTORY: Pain. Swelling. TECHNIQUE: 3 views FINDINGS: Metacarpals are intact. The fingers are intact. I see no fracture nor dislocation. There ar e no erosions. IMPRESSION: Negative left hand exam. No fracture.
--- NOTE | 2020-07-29 18:52 | XR ---
EXAMINATION TYPE: XR wrist complete LT DATE OF EXAM: 07/29/2020 COMPARISON: NONE HISTORY: Injury. Pain. TECHNIQUE: 4 views FINDINGS: Carpal bones are intact. Metacarpals are intact. I see no fracture nor dislocation. There a re no erosions. IMPRESSION: Negative left wrist exam.
[2020-07-29 19:14] VITALS: TEMP 98.5
[2020-07-29] MEDS ORDERED: KETOROLAC 15 MG/ML 1 ML VIAL IM STA (19:14)
--- NOTE | 2020-07-29 19:18 | ED ---
General Adult HPI - General Chief complaint: Extremity Injury, Upper Stated complaint: Hand injury Source: patient Mode of arrival: ambulatory Limitations: no limitations - History of Present Illness Initial comments: Patient was seen as a medical screening for advanced triage: 45-year-old male presents to the emergency room for a chief complaint of left hand pain. Patient reports he slammed his hand in a steel door today. States the door was propped open And the wind slammed it on his hand. States his thumb is very painful. States it is painful to move his hand. Patient denies any loss of sensation in the left hand. Denies any other injuries.Patient has no other complaints at this time including shortness of breath, chest pain, abdominal pain, nausea or vomiting, headache, or visual changes. - Related Data Home Medications Medication Instructions Recorded Confirmed Loratadine [Claritin] 10 mg PO DAILY 02/06/18 08/08/18 Ergocalciferol (Vitamin D2) 50,000 unit PO TU 07/26/18 08/08/18 [Vitamin D2] Naproxen 500 mg PO BID PRN 07/26/18 08/08/18 Aspirin [Children's Aspirin] 81 mg PO DAILY 08/08/18 08/08/18 Atorvastatin [Lipitor] 20 mg PO HS 08/08/18 08/08/18 Previous Rx's Medication Instructions Recorded HYDROcodone/APAP 10-325MG [Prompton 1 tab PO BID PRN #12 tab 08/08/18 10-325] HYDROcodone/APAP 5-325MG [Prompton 1 tab PO Q6HR PRN #12 tab 08/08/18 5-325] HYDROcodone/APAP 5-325MG [Prompton 1 tab PO Q6HR PRN #12 tab 08/27/18 5-325] HYDROcodone/APAP 5-325MG [Prompton 1 tab PO Q6HR PRN #10 tab 07/29/20 5-325] Allergies Allergy/AdvReac Type Severity Reaction Status Date / Time codeine Allergy Unknown Verified 07/29/20 19:15 Review of Systems ROS Statement: Those systems with pertinent positive or pertinent negative responses have been documented in the HPI. ROS Other: All systems not noted in ROS Statement are negative. Past Medical History Past Medical History: CVA/TIA Additional Past Medical History / Comment(s): chronic back pain History of Any Multi-Drug Resistant Organisms: None Reported Past Surgical History: Orthopedic Surgery Additional Past Surgical History / Comment(s): RIGHT ELBOW SURGERY Past Psychological History: Depression Smoking Status: Current every day smoker Past Alcohol Use History: None Reported Past Drug Use History: None Reported General Exam Limitations: no limitations General appearance: alert, in no apparent distress Head exam: Present: atraumatic, normocephalic, normal inspection Eye exam: Present: normal appearance, PERRL, EOMI. Absent: scleral icterus, conjunctival injection, periorbital swelling ENT exam: Present: normal exam, mucous membranes moist Neck exam: Present: normal inspection. Absent: tenderness, meningismus, lymphadenopathy Respiratory exam: Present: normal lung sounds bilaterally. Absent: respiratory distress, wheezes, rales, rhonchi, stridor Cardiovascular Exam: Present: regular rate, normal rhythm, normal heart sounds. Absent: systolic murmur, diastolic murmur, rubs, gallop, clicks Extremities exam: Present: tenderness (Tenderness to the thenar eminence of the left thumb.), normal capillary refill (Capillary refill less than 2 seconds the left thumb as well as all other digits of the left hand.), other (Patient does have edema noted to the thenar eminence of the left hand. This is normal color. Compartments are soft.). Absent: full ROM (Patient able to move all digits of the left hand but does have pain with doing so.), pedal edema, joint swelling, calf tenderness Course Vital Signs 07/29/20 19:11 Temperature 98.5 F Pulse Rate 82 Respiratory 20 Rate Blood Pressure 142/100 O2 Sat by Pulse 100 Oximetry Medical Decision Making - Medical Decision Making Vitals are stable. Patient mildly hypertensive [place] related to pain. HPI and physical exam as documented. Neurovascular status intact in the left hand. Compartments soft. X-ray reports and films were reviewed. Negative left hand and wrist exams. Patient was wrapped with an Fernando wrap. He was given Toradol and Prompton here in the emergency room. Disposition Clinical Impression: Hand injury Disposition: HOME SELF-CARE Condition: Good Instructions (If sedation given, give patient instructions): R.I.C.E. Treatment (ED) Additional Instructions: Please take motrin and norco for pain. Rest ice and elevate the hand. Follow up with your doctor in 1-2 days. Return to the Er for any worsening symptoms. Prescriptions: HYDROcodone/APAP 5-325MG [Prompton 5-325] 1 tab PO Q6HR PRN #10 tab PRN Reason: Pain Is patient prescribed a controlled substance at d/c from ED?: Yes When asked, does pt state using other controlled substances?: No If prescribed controlled substance>3 days was MAPS reviewed?: Prescribed <3 Days If opioid is for acute pain is fill amount 7 days or less?: Yes If Rx opioid, was Start Talking consent form obtained?: Yes Referrals: Roberto Villeda MD [Primary Care Provider] - 1-2 days Time of Disposition: 19:31
[2020-07-29] MEDS ORDERED: HYDROcodone/APAP 5-325MG 1 EACH TAB PO STA (19:28)
[2020-07-29 19:55] VITALS: BP 137/91; PULSE 78; RESP 18
== END 2020-07-29 19:55 | disposition home or self-care (01) ==
LOC: EC 16:21
DX: S69.92XA Unspecified injury of left wrist, hand and finger(s), initial encounter (principal); F17.200 Nicotine dependence, unspecified, uncomplicated; Z79.82 Long term (current) use of aspirin; F32.9 Major depressive disorder, single episode, unspecified; Z86.73 Personal history of transient ischemic attack (TIA), and cerebral infarction without residual deficits; W22.09XA Striking against other stationary object, initial encounter
CPT/HCPCS: 73110; 73130; 99283; 96372; J1885

== ENCOUNTER 2020-09-25 10:02 | Emergency (ER) | payer OTHER ==
[2020-09-25 10:14] VITALS: RESP 18
--- NOTE | 2020-09-25 11:23 | ED ---
General Adult HPI - General Chief complaint: Shortness of Breath Stated complaint: SOB/headache Time Seen by Provider: 09/25/20 10:21 Source: patient, RN notes reviewed Mode of arrival: ambulatory Limitations: no limitations - History of Present Illness Initial comments: This a 45-year-old male presents emergency Department chief complaint of cough congestion, states it feels like his lungs are burning. Patient states that he does not feel short of breath no chest pain. He states he has productive cough. Patient states he is concerned as his boss has COVID-19 and he was exposed. No reported fevers no body aches. - Related Data Home Medications Medication Instructions Recorded Confirmed Ergocalciferol (Vitamin D2) 50,000 unit PO TU 07/26/18 09/25/20 [Vitamin D2] Aspirin [Children's Aspirin] 81 mg PO DAILY 08/08/18 09/25/20 Atorvastatin [Lipitor] 10 mg PO DAILY 09/25/20 09/25/20 Loratadine [Claritin] 10 mg PO DAILY 09/25/20 09/25/20 Previous Rx's Medication Instructions Recorded Azithromycin [Zithromax Z-pack (6 0 mg PO DIRECTED #1 pack 09/25/20 tabs)] predniSONE 50 mg PO DAILY #5 tab 09/25/20 Allergies Allergy/AdvReac Type Severity Reaction Status Date / Time codeine Allergy Unknown Verified 09/25/20 12:51 Review of Systems ROS Statement: Those systems with pertinent positive or pertinent negative responses have been documented in the HPI. ROS Other: All systems not noted in ROS Statement are negative. Past Medical History Past Medical History: CVA/TIA Additional Past Medical History / Comment(s): chronic back pain, "hole in heart". History of Any Multi-Drug Resistant Organisms: None Reported Past Surgical History: Orthopedic Surgery Additional Past Surgical History / Comment(s): RIGHT ELBOW SURGERY Past Psychological History: Depression Smoking Status: Current every day smoker Past Alcohol Use History: None Reported Past Drug Use History: None Reported General Exam Limitations: no limitations General appearance: alert, in no apparent distress Head exam: Present: atraumatic, normocephalic, normal inspection Eye exam: Present: normal appearance, PERRL, EOMI. Absent: scleral icterus, conjunctival injection, periorbital swelling ENT exam: Present: normal exam, mucous membranes moist Neck exam: Present: normal inspection. Absent: tenderness, meningismus, lymphadenopathy Respiratory exam: Present: normal lung sounds bilaterally. Absent: respiratory distress, wheezes, rales, rhonchi, stridor Cardiovascular Exam: Present: regular rate, normal rhythm, normal heart sounds. Absent: systolic murmur, diastolic murmur, rubs, gallop, clicks GI/Abdominal exam: Present: soft, normal bowel sounds. Absent: distended, tenderness, guarding, rebound, rigid Course Vital Signs 09/25/20 10:10 Temperature 98.0 F Pulse Rate 79 Respiratory 18 Rate Blood Pressure 138/89 O2 Sat by Pulse 100 Oximetry EKG Findings - EKG Comments: EKG Findings:: EKG performed at 10 20 normal sinus rhythm rate of 72 DC 156 QRS 92 QT last QTC 362/396 - EKG Results: EKG: interpreted by [facility] Medical Decision Making - Medical Decision Making X-ray, COVID-19 testing and labs unremarkable. Patient has acute bronchitis patient we discharged stable condition. - Lab Data Result diagrams: 09/25/20 10:20 09/25/20 10:20 Lab Results 09/25/20 09/25/20 09/25/20 Range/Units 10:20 10:20 10:20 WBC 8.6 (3.8-10.6) k/uL RBC 5.25 (4.30-5.90) m/uL Hgb 14.1 (13.0-17.5) gm/dL Hct 43.9 (39.0-53.0) % MCV 83.6 (80.0-100.0) fL MCH 26.8 (25.0-35.0) pg MCHC 32.1 (31.0-37.0) g/dL RDW 14.8 (11.5-15.5) % Plt Count 177 (150-450) k/uL MPV 8.1 Neutrophils % 73 % Lymphocytes % 15 % Monocytes % 8 % Eosinophils % 2 % Basophils % 1 % Neutrophils # 6.3 (1.3-7.7) k/uL Lymphocytes # 1.3 (1.0-4.8) k/uL Monocytes # 0.7 (0-1.0) k/uL Eosinophils # 0.2 (0-0.7) k/uL Basophils # 0.0 (0-0.2) k/uL PT 9.6 (9.0-12.0) sec INR 0.9 (<1.2) APTT 26.8 (22.0-30.0) sec Sodium 137 (137-145) mmol/L Potassium 4.4 (3.5-5.1) mmol/L Chloride 104 (98-107) mmol/L Carbon Dioxide 26 (22-30) mmol/L Anion Gap 7 mmol/L BUN 11 (9-20) mg/dL Creatinine 0.91 (0.66-1.25) mg/dL Est GFR (CKD-EPI)AfAm >90 (>60 ml/min/1.73 sqM) Est GFR (CKD-EPI)NonAf >90 (>60 ml/min/1.73 sqM) Glucose 86 (74-99) mg/dL Calcium 9.2 (8.4-10.2) mg/dL Total Bilirubin 0.2 (0.2-1.3) mg/dL AST 21 (17-59) U/L ALT 13 (4-49) U/L Alkaline Phosphatase 72 (38-126) U/L Troponin I (0.000-0.034) ng/mL Total Protein 6.7 (6.3-8.2) g/dL Albumin 4.3 (3.5-5.0) g/dL Coronavirus (PCR) (Not Detectd) 09/25/20 09/25/20 Range/Units 10:20 11:18 WBC (3.8-10.6) k/uL RBC (4.30-5.90) m/uL Hgb (13.0-17.5) gm/dL Hct (39.0-53.0) % MCV (80.0-100.0) fL MCH (25.0-35.0) pg MCHC (31.0-37.0) g/dL RDW (11.5-15.5) % Plt Count (150-450) k/uL MPV Neutrophils % % Lymphocytes % % Monocytes % % Eosinophils % % Basophils % % Neutrophils # (1.3-7.7) k/uL Lymphocytes # (1.0-4.8) k/uL Monocytes # (0-1.0) k/uL Eosinophils # (0-0.7) k/uL Basophils # (0-0.2) k/uL PT (9.0-12.0) sec INR (<1.2) APTT (22.0-30.0) sec Sodium (137-145) mmol/L Potassium (3.5-5.1) mmol/L Chloride (98-107) mmol/L Carbon Dioxide (22-30) mmol/L Anion Gap mmol/L BUN (9-20) mg/dL Creatinine (0.66-1.25) mg/dL Est GFR (CKD-EPI)AfAm (>60 ml/min/1.73 sqM) Est GFR (CKD-EPI)NonAf (>60 ml/min/1.73 sqM) Glucose (74-99) mg/dL Calcium (8.4-10.2) mg/dL Total Bilirubin (0.2-1.3) mg/dL AST (17-59) U/L ALT (4-49) U/L Alkaline Phosphatase (38-126) U/L Troponin I <0.012 (0.000-0.034) ng/mL Total Protein (6.3-8.2) g/dL Albumin (3.5-5.0) g/dL Coronavirus (PCR) Not Detected (Not Detectd) Disposition Clinical Impression: Acute bronchitis Disposition: HOME SELF-CARE Condition: Stable Instructions (If sedation given, give patient instructions): Acute Bronchitis (ED) Additional Instructions: Please return to the Emergency Department if symptoms worsen or any other concerns. Prescriptions: predniSONE 50 mg PO DAILY #5 tab Azithromycin [Zithromax Z-pack (6 tabs)] 0 mg PO DIRECTED #1 pack Is patient prescribed a controlled substance at d/c from ED?: No Referrals: Roberto Villeda MD [Primary Care Provider] - 1-2 days Time of Disposition: 13:02
[2020-09-25 11:28] LABS: Basophils % (A) 1 %; Eosinophils # (A) 0.2 k/uL (0-0.7); Eosinophils % (A) 2 %; HCT 43.9 % (39.0-53.0); HGB 14.1 gm/dL (13.0-17.5); Lymphocytes # (A) 1.3 k/uL (1.0-4.8); Lymphocytes % (A) 15 %; MCH 26.8 pg (25.0-35.0); MCHC 32.1 g/dL (31.0-37.0); MCV 83.6 fL (80.0-100.0); Mean Platelet Volume 8.1; Monocytes # (A) 0.7 k/uL (0-1.0); Monocytes % (A) 8 %; Neutrophils # (A) 6.3 k/uL (1.3-7.7); Neutrophils % (A) 73 %; Platelet Count 177 k/uL (150-450); RBC 5.25 m/uL (4.30-5.90); RDW 14.8 % (11.5-15.5); WBC 8.6 k/uL (3.8-10.6)
[2020-09-25 11:37] LABS: ALT 13 U/L (4-49); AST 21 U/L (17-59); African American GFR (CKD) >90 (>60 ml/min/1.73 sqM); Albumin 4.3 g/dL (3.5-5.0); Alkaline Phosphatase 72 U/L (38-126); Anion Gap 7 mmol/L; Blood Urea Nitrogen 11 mg/dL (9-20); Calcium 9.2 mg/dL (8.4-10.2); Carbon Dioxide 26 mmol/L (22-30); Chloride 104 mmol/L (98-107); Glucose 86 mg/dL (74-99); INR 0.9 (<1.2); Non-African American GFR(CKD) >90 (>60 ml/min/1.73 sqM); Partial Thromboplastin Time 26.8 sec (22.0-30.0); Potassium 4.4 mmol/L (3.5-5.1); Prothrombin Time 9.6 sec (9.0-12.0); Sodium 137 mmol/L (137-145); Total Bilirubin 0.2 mg/dL (0.2-1.3); Total Protein 6.7 g/dL (6.3-8.2)
--- NOTE | 2020-09-25 12:55 | XR ---
EXAMINATION TYPE: XR chest 2V DATE OF EXAM: 09/25/2020 COMPARISON: Chest x-ray April 29, 2019 HISTORY: Cough for a few days. Difficulty in breathing. TECHNIQUE: Frontal and lateral views of the chest are obtained. FINDINGS: Mild underlying emphysematous change may be present. There is no suspicious focal air space opacity, pleural effusion, or pneumothorax seen. The cardiac silhouette size remains within normal limits. The osseous structures are intact. IMPRESSION: No acute cardiopulmonary process. No significant change from prior.
[2020-09-25 13:11] VITALS: BP 121/96; PULSE 78; TEMP 98.7
== END 2020-09-25 13:25 | disposition home or self-care (01) ==
LOC: EC 10:02
DX: J20.8 Acute bronchitis due to other specified organisms (principal); F32.9 Major depressive disorder, single episode, unspecified; F17.200 Nicotine dependence, unspecified, uncomplicated; Z20.822 Contact with and (suspected) exposure to COVID-19; Z86.73 Personal history of transient ischemic attack (TIA), and cerebral infarction without residual deficits; Z79.52 Long term (current) use of systemic steroids; Z79.82 Long term (current) use of aspirin; Z79.899 Other long term (current) drug therapy
CPT/HCPCS: 36415; 71046; 80053; 84484; 85025; 85610; 85730; 87635; 93005; 99285

== ENCOUNTER → 2024-08-08 | Outpatient (CLI) | payer OTHER ==
--- NOTE | 2024-08-09 16:26 | XR ---
EXAMINATION TYPE: XR hand complete LT DATE OF EXAM: 08/08/2024 4:21 PM COMPARISON: None. CLINICAL INDICATION: Male, 49 years old with history of S69.92XA UNSP INJURY OF LEFT WRIST, HAND AND FINGE, pain TECHNIQUE: 3 view(s) obtained. FINDINGS: No acute fracture or dislocation evident. Joint spaces are preserved. Soft tissues appear normal. Follow up exams can be performed 7-10 days from acute trauma for continued pain. IMPRESSION: 1. No acute osseous abnormality left hand [facility], , 08/09/2024 4:24 PM
== END | disposition home or self-care (01) ==
LOC: RADXRMAIN 15:59
PROVIDERS: ATTEND Nurse Practitioner Family
DX: S69.92XA Unspecified injury of left wrist, hand and finger(s), initial encounter (principal); X58.XXXA Exposure to other specified factors, initial encounter